=== PATIENT | female | born 1995 | race Caucasian/White ===

== ENCOUNTER 2021-02-01 12:27 | Emergency (ER) | payer OTHER ==
--- NOTE | 2021-02-01 14:30 | EDM.PDOC ---
ED HPI GENERAL MEDICAL PROBLEM - General Chief Complaint: Genitourinary Problem Stated Complaint: genital lesion Time Seen by Provider: 02/01/21 12:29 Source of Information: Reports: Patient History Limitations: Reports: No Limitations - History of Present Illness INITIAL COMMENTS - FREE TEXT/NARRATIVE: Patient is a 25-year-old female who presents today for a lesion to her genital area. Patient had this at least 10x in the past and has not seen multiple physicians in the past as well. Patient states she is also been swabbed for general herpes as well as been negative. Patient is unsure states it normally happens after she has sex with her partner. Does not happen every time he had sex. They both deny had any any sexual encounters with other people. Other than the lesion she denies any discharge or pain with urinating or other complaints. - Related Data Allergies Allergy/AdvReac Type Severity Reaction Status Date / Time No Known Allergies Allergy Verified 02/01/21 13:25 Home Meds: Home Meds LORazepam [Ativan] 0.5 mg PO 02/01/21 [History] Past Medical History - Past Health History Medical/Surgical History: Denies Medical/Surgical History [employer] History: Reports: Other (See Below) Other [employer]PER History: painful sex Social & Family History - Family History Family Medical History: No Pertinent Family History - Tobacco Use Tobacco Use Status *Q: Never Tobacco User - Caffeine Use Caffeine Use: Reports: None - Recreational Drug Use Recreational Drug Use: No ED ROS GENERAL - Review of Systems Review Of Systems: See Below Constitutional: Reports: No Symptoms HEENT: Reports: No Symptoms Respiratory: Reports: No Symptoms Cardiovascular: Reports: No Symptoms Endocrine: Reports: No Symptoms GI/Abdominal: Reports: No Symptoms : Reports: Other (Genital lesion) Musculoskeletal: Reports: No Symptoms Skin: Reports: No Symptoms Neurological: Reports: No Symptoms Psychiatric: Reports: No Symptoms Hematologic/Lymphatic: Reports: No Symptoms Immunologic: Reports: No Symptoms ED EXAM, RENAL/ - Physical Exam Exam: See Below Exam Limited By: No Limitations General Appearance: Alert, WD/WN Respiratory/Chest: No Respiratory Distress Cardiovascular: Normal Peripheral Pulses (Female) Exam: Other (Internal vaginal mucosa lesion) Extremities: Normal Inspection Neurological: Alert, Oriented Psychiatric: Normal Affect Course - Vital Signs Last Recorded V/S: Last Vital Signs Temp 98.6 F 09/20/21 13:22 Pulse 85 02/01/21 13:22 Resp 18 02/01/21 13:22 BP 107/73 02/01/21 13:22 Pulse Ox 100 02/01/21 13:22 Departure - Departure Time of Disposition: 14:30 Disposition: Home, Self-Care 01 Condition: Good Clinical Impression: Vaginal lesion - Discharge Information *PRESCRIPTION DRUG MONITORING PROGRAM REVIEWED*: Not Applicable *COPY OF PRESCRIPTION DRUG MONITORING REPORT IN PATIENT SIXTO: Not Applicable Instructions: Sexually Transmitted Disease, [id number] Referrals: Albert Thornton MD [Primary Care Provider] - Additional Instructions: The following information is given to patients seen in the emergency department who are being discharged to home. This information is to outline your options for follow-up care. We provide all patients seen in our emergency department with a follow-up referral. The need for follow-up, as well as the timing and circumstances, are variable depending upon the specifics of your emergency department visit. If you don't have a primary care physician on staff, we will provide you with a referral. We always advise you to contact your personal physician following an emergency department visit to inform them of the circumstance of the visit and for follow-up with them and/or the need for any referrals to a consulting specialist. The emergency department will also refer you to a specialist when appropriate. This referral assures that you have the opportunity for follow-up care with a specialist. All of these measure are taken in an effort to provide you with optimal care, which includes your follow-up. Under all circumstances we always encourage you to contact your private physician who remains a resource for coordinating your care. When calling for follow-up care, please make the office aware that this follow-up is from your recent emergency room visit. If for any reason you are refused follow-up, please contact the [facility] Emergency Department at and asked to speak to the emergency department charge nurse. Please follow up with your primary care physician. If you do not have a primary care physician, see below: [facility] [address] [place] [id number] [facility] [address] [place] [id number] You are seen today for a vaginal lesion that you had before in the past. You have had multiple work-ups for STDs and they are all come back negative. This looks like a similar lesions that you had before the past. We will we can do to try to provide some pain control and you can see your primary care physician for more evaluation. Sepsis Event Note (ED) - Focused Exam Vital Signs: Vital Signs Temp Pulse Resp BP Pulse Ox 02/01/21 13:22 98.6 F 85 18 107/73 100 - Assessment/Plan Plan: Patient is a 25-year-old female who presents today for a vaginal lesion unclear what is a call she has been worked up for her physical for the past and as well as other STDs been negative. Patient presents today mostly for pain control. Unclear what we can do with patient we can try to give patient some narcotics and possible some topical lidocaine to see if it works.
[2021-02-03 13:03] LABS: C.TRACHOMATIS BY TMA Negative (Negative); N.GONORRHOEAE BY TMA Negative (Negative)
== END 2021-02-01 15:00 | disposition home or self-care (01) ==
LOC: MW.ED 12:27
DX: L98.8 Other specified disorders of the skin and subcutaneous tissue (principal)
CPT/HCPCS: 87480; 87491; 87510; 87529; 87591; 87660; 99283